=== PATIENT | male | born 1950 | race Caucasian/White ===

== ENCOUNTER 2022-10-10 10:39 | Outpatient (CLI) | payer OTHER | END 2022-10-10 23:59 | disposition home or self-care (01) | LOC: CARD DIAG 10:39 | PROVIDERS: ATTEND Chiropractor | DX: I34.81 Nonrheumatic mitral (valve) annulus calcification (principal); I37.1 Nonrheumatic pulmonary valve insufficiency; I25.9 Chronic ischemic heart disease, unspecified | CPT/HCPCS: 93306 ==